=== PATIENT | female | born 1985 | race Caucasian/White ===

== ENCOUNTER 2024-09-27 07:11 | Inpatient (IN) | payer OTHER ==
[~2024-09-27] VITALS: Ht 154.9 cm; Wt 121.1 kg
[2024-09-27] MEDS ORDERED: PredniSONE 20 MG Tab PO ONE (07:25)
[2024-09-27] MEDS ORDERED: Albuterol 2.5 MG/3 ML VIAL INH SCH (07:25)
[2024-09-27] MEDS ORDERED: Ipratropium/Albuterol SulF 2.5-0.5MG/3 ML Amp INH ONE (07:25)
[2024-09-27] MEDS ORDERED: CefTRIAXone Sodium 1,000 MG in NS 50 ML IV ONE (07:45)
[2024-09-27 09:14] LABS: BASOPHILS ABSOLUTE AUTO 0.08 K/mm3 (0.00-0.23); BASOPHILS PERCENT AUTO 1 % (0-2); EOSINOPHILS ABSOLUTE AUTO 0.06 K/mm3 (0.00-0.68); EOSINOPHILS PERCENT AUTO 0 % (0-6); Hematocrit 38.4 % (33.0-51.0); Hemoglobin 12.8 g/dL (11.5-16.0); IMMATURE GRAN ABSOLUTE AUTO 0.04 K/mm3 (0.00-0.10); IMMATURE GRAN PERCENT AUTO 0 % (0-1); LYMPHOCYTES ABSOLUTE AUTO 0.74 K/mm3 (0.84-5.20); LYMPHOCYTES PERCENT AUTO 6 % (21-46); MONOCYTES ABSOLUTE AUTO 0.46 K/mm3 (0.16-1.47); MONOCYTES PERCENT AUTO 3 % (4-13); Mean Corpuscular HGB 31.8 pg (26.0-34.0); Mean Corpuscular HGB Conc 33.3 g/dL (31.5-36.5); Mean Corpuscular Volume 95 fL (80-100); Mean Platelet Volume 8.8 fL (9.1-12.4); NEUTROPHILS ABSOLUTE AUTO 12.15 K/mm3 (1.96-9.15); NEUTROPHILS PERCENT AUTO 90 % (41-73); Platelet Count 310 K/mm3 (150-400); RDW Coefficient Variation 12.3 % (11.7-14.2); RDW Standard Deviation 42.6 fL (35.1-46.3); Red Blood Cell Count 4.03 M/mm3 (3.80-5.20); White Blood Cell Count 13.53 K/mm3 (4.00-11.30)
[2024-09-27] MEDS ORDERED: Azithromycin 500 MG in NS 250 ML IV ONE (09:35)
[2024-09-27] MEDS ORDERED: Lactated Ringer's 1,000 ML IV ONE (09:40)
[2024-09-27 09:42] LABS: Albumin, Blood 3.6 g/dL (3.4-5.0); Albumin/Globulin Ratio 0.9 (0.8-1.8); Bilirubin, Total 0.7 mg/dL (0.1-1.0); Bun/Creatinine Ratio 22.8 (12.0-20.0); Calcium, Blood 9.2 mg/dL (8.5-10.1); Creatinine, Blood 0.61 mg/dL (0.40-1.00); Globulin, Blood 3.9 g/dL (2.2-4.0); Potassium, Blood 3.8 mmol/L (3.5-5.5); Total Protein, Blood 7.5 g/dL (6.4-8.2)
[2024-09-27 09:50] LABS: Influenza A, PCR NEGATIVE (NEGATIVE); Influenza B, PCR NEGATIVE (NEGATIVE); Resp Syncytial Virus, PCR NEGATIVE (NEGATIVE); SARS-Cov-2 (COVID-19) PCR, MMC NEGATIVE (NEGATIVE)
[2024-09-27] MEDS ORDERED: PANT40 PO (10:07)
[2024-09-27] MEDS ORDERED: CELEXA40 M1 PO (10:07)
[2024-09-27] MEDS ORDERED: NEURONTIN400 M1 PO (10:07)
[2024-09-27] MEDS ORDERED: BACLOFEN5 M1 PO (10:08)
[2024-09-27] MEDS ORDERED: ADVAIR HFA 230-28 GM INH (10:08)
[2024-09-27] MEDS ORDERED: FOLI1 PO (10:08)
[2024-09-27] MEDS ORDERED: Atarax10 MG PO (10:08)
[2024-09-27] MEDS ORDERED: ALBU90OI INH (10:09)
[2024-09-27] MEDS ORDERED: VITAMIN D31000 UNI1 PO (10:09)
[2024-09-27] MEDS ORDERED: FLU VACC TS2024-25(6MOS UP)/PF 45 MCG/0.5 ML SYRINGE IM ONE (10:20)
[2024-09-27] MEDS ORDERED: Magnesium Hydroxide Conc 10 ML UDC PO PRN (10:20)
[2024-09-27] MEDS ORDERED: FLU VACC TS2024-25(6MOS UP)/PF 45 MCG/0.5 ML SYRINGE IM SCH (10:20)
[2024-09-27] MEDS ORDERED: Ondansetron HCl 2 MG / ML 2ML Vial IV PRN (10:20)
[2024-09-27] MEDS ORDERED: Ipratropium/Albuterol SulF 2.5-0.5MG/3 ML Amp INH SCH (10:20)
[2024-09-27] MEDS ORDERED: TRAZ100 PO (10:34)
[2024-09-27] MEDS ORDERED: SEROQUEL25 MG PO (10:34)
[2024-09-27] MEDS ORDERED: Nicotine Polacrilex 2 MG Gum PO PRN (10:35)
[2024-09-27] MEDS ORDERED: Mometasone/Formoterol MDI 200/5 mcg 13 GM INH SCH (10:45)
[2024-09-27] MEDS ORDERED: Folic Acid 1 MG TAB PO SCH (11:00)
[2024-09-27] MEDS ORDERED: Cholecalciferol 1000 Unit Tablet (=25MCG) PO SCH (11:00)
[2024-09-27] MEDS ORDERED: Citalopram Hydrobromide 20 MG Tab PO SCH (11:00)
[2024-09-27] MEDS ORDERED: Baclofen 10 MG Tab PO PRN (11:55)
[2024-09-27] MEDS ORDERED: HyDROXyzine HCl 10 MG Tab PO PRN (11:55)
[2024-09-27 12:18] VITALS: BP 129/69
--- NOTE | 2024-09-27 13:16 | NUR ---
PHYSICIAN NOTIFY NOTIFIED DR PARK OF CRITICAL LACTIC OF 3.3, STATED HE WILL ORDER NS INFUSION. VITALS WNL AT THIS TIME, PATIENT ON 3 LITERS NC. A/O X4.
[2024-09-27] MEDS ORDERED: NS 1,000 ML IV SCH (13:20)
[2024-09-27] MEDS ORDERED: Gabapentin 400 MG Cap PO SCH (14:00)
[2024-09-27 15:19] VITALS: BP 158/67
--- NOTE | 2024-09-27 18:18 | NUR ---
SHIFT SUMMARY PATIENT ARRIVED TO FLOOR FROM ER. AMBULATORY, A/O X4. BASELINE TREMORS IN HANDS. ON 3 LITERS OXYGEN NASAL CANNULA, SATING MID 90'S, TACHYCARDIC. DID NOT ATTEMPT TO WEAN THIS SHIFT. CRITICAL LAB RECEIVED, LACTIC 3.3, DOC NOTIFIED, STARTED NS INFUSION. ABLE TO MAKE NEEDS KNOWN. CALL LIGHT IN REACH, CARES ONGOING.
[2024-09-27 19:13] VITALS: BP 168/76
[2024-09-27] MEDS ORDERED: HyDROXyzine HCl 10 MG Tab PO SCH (21:00)
[2024-09-27] MEDS ORDERED: QUEtiapine Fumarate 25 MG Tab PO SCH (21:00)
[2024-09-27] MEDS ORDERED: Baclofen 10 MG Tab PO SCH (21:00)
[2024-09-27] MEDS ORDERED: TraZODone HCl 100 MG Tab PO SCH (21:00)
[2024-09-27] MEDS ORDERED: Lactobacil 2-S.Thermo-Bifido 1 1 Cap PO SCH (21:00)
[2024-09-28 04:26] VITALS: BP 146/84
--- NOTE | 2024-09-28 04:43 | NUR ---
SHIFT SUMMARY PT A&Ox4 AND PLEASANT. ON 3L OF OXYGEN AND SATING ABOVE 95%. RT AT BEDSIDE AT START OF SHIFT. PT SOB WITH ACTIVITY. IND TO BSC. NICOTINE GUM PROVIDED PER EMAR. NS INFUSING @ 150ML/HR. BED IN LOWEST POSITION AND CALL LIGHT IN REACH.
[2024-09-28] MEDS ORDERED: Pantoprazole Sodium 20 MG Tab PO SCH (06:00)
[2024-09-28 06:22] LABS: Hematocrit 32.8 % (33.0-51.0); Hemoglobin 10.8 g/dL (11.5-16.0); Mean Corpuscular HGB 32.2 pg (26.0-34.0); Mean Corpuscular HGB Conc 32.9 g/dL (31.5-36.5); Mean Corpuscular Volume 98 fL (80-100); Mean Platelet Volume 9.3 fL (9.1-12.4); Platelet Count 325 K/mm3 (150-400); RDW Coefficient Variation 12.5 % (11.7-14.2); RDW Standard Deviation 45.1 fL (35.1-46.3); Red Blood Cell Count 3.35 M/mm3 (3.80-5.20); White Blood Cell Count 16.02 K/mm3 (4.00-11.30)
[2024-09-28 06:53] LABS: Bun/Creatinine Ratio 25.9 (12.0-20.0); Calcium, Blood 8.8 mg/dL (8.5-10.1); Creatinine, Blood 0.62 mg/dL (0.40-1.00)
[2024-09-28 07:18] VITALS: BP 140/80
[2024-09-28] MEDS ORDERED: PredniSONE 20 MG Tab PO SCH (09:00)
[2024-09-28] MEDS ORDERED: CefTRIAXone Sodium 1,000 MG in NS 100 ML IV SCH (09:00)
[2024-09-28] MEDS ORDERED: Azithromycin 250 MG Tab PO SCH (09:00)
[2024-09-28] MEDS ORDERED: Nicotine Polacrilex 2 MG Gum PO PRN (09:20)
[2024-09-28] MEDS ORDERED: Baclofen 10 MG Tab PO PRN (09:20)
[2024-09-28] MEDS ORDERED: Nicotine 21 MG PATCH TOP SCH (09:30)
[2024-09-28 16:03] VITALS: BP 158/96
--- NOTE | 2024-09-28 18:02 | NUR ---
SHIFT SUMMARY PATIENT AMBULATORY IN ROOM INDEPENDENTLY. TITRATED TO ROOM AIR THIS SHIFT. UNABLE TO PRODUCE ENOUGH SPUTUM FOR A SAMPLE. PRNS GIVEN FOR PAIN AND ANXIETY, NICOTEINE REPLACEMENTS PROVIDED. TOLERATING ABX WELL. ABLE TO MAKE NEEDS KNOWN. CARES ONGOING. CALL LIGHT IN REACH.
[2024-09-28 20:09] VITALS: BP 173/105
[2024-09-28] MEDS ORDERED: TraZODone HCl 100 MG Tab PO SCH (21:00)
[2024-09-29 02:20] VITALS: BP 181/104
[2024-09-29] MEDS ORDERED: HydrALAZINE HCl 20 MG / ML 1ML Vial IV PRN (05:05)
[2024-09-29 07:41] VITALS: BP 148/86
[2024-09-29] MEDS ORDERED: FentaNYL Citrate 50 MCG/ML 2 ML Injection IV STA (11:01)
[2024-09-29] MEDS ORDERED: Calcium Carbonate 500 MG Tab Chew PO PRN (11:05)
[2024-09-29] MEDS ORDERED: Mag Hydrox/Al Hydrox/Simeth 18 ML,Lidocaine 2% Viscous Soln 9 ML,Atropine/Scopalam/Hyos... PO ONE (11:05)
[2024-09-29] MEDS ORDERED: FentaNYL Citrate 50 MCG/ML 2 ML Injection IV PRN (12:00)
[2024-09-29 16:29] VITALS: BP 162/88
[2024-09-29 16:56] LABS: Hematocrit 34.7 % (33.0-51.0); Hemoglobin 11.7 g/dL (11.5-16.0); Mean Corpuscular HGB 32.3 pg (26.0-34.0); Mean Corpuscular HGB Conc 33.7 g/dL (31.5-36.5); Mean Corpuscular Volume 96 fL (80-100); Mean Platelet Volume 8.9 fL (9.1-12.4); Platelet Count 413 K/mm3 (150-400); RDW Coefficient Variation 12.4 % (11.7-14.2); RDW Standard Deviation 43.5 fL (35.1-46.3); Red Blood Cell Count 3.62 M/mm3 (3.80-5.20); White Blood Cell Count 12.28 K/mm3 (4.00-11.30)
--- NOTE | 2024-09-29 17:52 | NUR ---
SHIFT SUMMARY PT A&OX4 AND ANSWERS QUESTIONS APPROPRIATELY. PT VSS, NO COMPLAINTS OF CP/PRESSURE OR SOB. PT REPORTS ABD PAIN STATING "IT FEELS LIKE MY HERNIA POPPED OR SOMETHYING". PAIN PERSISTS SO PT SEND FOR ABD SCAN. PT RECEIVED SCHEDULED AND PRN MEDICATIONS. PT REPOSITIONED INDEPENDENTLY. PT SPENT MOST OF THE SHIFT IN BED OR WALKING IN ROOM. NO ACUTE EVENTS AT THIS TIME. PT LEFT IN A POSITION OF SAFETY WITH FALL PRECAUTIONS IN PLACE AND CALL LIGHT IN REACH.
--- NOTE | 2024-09-29 18:17 | NUR ---
CALL PLACED TO [facility] TO UPDATE ON PT CARE
[2024-09-29 20:41] VITALS: BP 129/75
[2024-09-30 02:59] VITALS: BP 126/112
--- NOTE | 2024-09-30 05:33 | NUR ---
SHIFT SUMMARY PATIENT SLEPT IN LONG INTERVALS. WITH O2/2L/NC ALL NIGHT. FINE HAND TREMORS IS THE ONLY WITH WITHDRAWAL SYMPTOMS. DID HAVE ABD PAIN THAT REQUIRED TUMS AND FENTANYL. 2ND BP WAS A HIGH DIASTOLIC ONLY, ANOTHER REASON FOR GIVING HER PAIN MED.
[2024-09-30 07:09] VITALS: BP 131/79
[2024-09-30] MEDS ORDERED: Albuterol 2.5 MG/3 ML VIAL INH PRN (08:45)
[2024-09-30] MEDS ORDERED: Ipratropium/Albuterol SulF 2.5-0.5MG/3 ML Amp INH PRN ×2 (10:15→11:35)
[2024-09-30] MEDS ORDERED: Acetaminophen 325 MG TABLET PO PRN (11:25)
[2024-09-30] MEDS ORDERED: HYDROcodone 5-APAP 325 TAB PO PRN (13:20)
--- NOTE | 2024-09-30 16:19 | NUR ---
SUMMARY- PT A/O X4. UP IN CHAIR MOST OF THE DAY. MOD DYSPNEA WITH EXERTION. OCC PERIODS OF EXP WHEEZE, SCATTERED RHONCHI, CLEARS WITH COUGH. STATES MIN PRODUCTION. HAS ROUTINE NEBS AND PRN FOR WHEEZE. PT TOLERATING FOOD AND FLUIDS. PAIN IN BACK CONTROLLED WITH NORCO. PLAN TO BE DC'D WITHIN 24-[address] PARK'S NOTES. SS WORKING ON OBTAINING NEB TX FRO HOME USE.
[2024-09-30 20:21] VITALS: BP 171/74
[2024-09-30 21:45] VITALS: BP 161/90
[2024-09-30 22:32] VITALS: BP 148/77
[2024-10-01 04:12] VITALS: BP 170/78
--- NOTE | 2024-10-01 05:06 | NUR ---
SHIFT SUMMARY 38 YR F ADMITTED ON 09/27/24. FULL CODE. NO ACUTE CHANGES THIS SHIFT. PT HAS BEEN ANXIOUS ABOUT HER SLEEP STUDY THIS SHIFT. SHE WAS CRYING AND WORRIED THAT THE STUDY WOULD NOT WORK BECAUSE SHE WAS NOT ABLE TO FALL ASLEEP RIGHT AWAY. SHE DID EVENTUALLY FALL ASLEEP AND PER RT, PT HAD TAKEN HER O2 OFF AND HER SATS DROPPED TO 86. SATS WERE WNL ONCE O2 WAS PUT BACK ON. SHE IS ON 1 L. PT STATES SHE WANTS TO GO HOME TODAY TO RESUME HER TX FOR ALCOHOLISM.
[2024-10-01 07:42] VITALS: BP 169/87
[2024-10-01] MEDS ORDERED: IPRAT-ALBUT 0.5-3 ML INH (11:54)
[2024-10-01] MEDS ORDERED: DULCOLAX400 MG/5 M PO (11:55)
[2024-10-01] MEDS ORDERED: NICO21TP TOP (11:55)
[2024-10-01] MEDS ORDERED: NICO2 PO (11:55)
[2024-10-01] MEDS ORDERED: PRED20 PO (11:56)
[2024-10-01] MEDS ORDERED: VISBIOME 112.51 EACH PO (11:56)
[2024-10-01] MEDS ORDERED: AMOCLA875 PO (11:56)
[2024-10-01] MEDS ORDERED: FLUTICASONE-SAL12 G2 INH (11:57)
--- NOTE | 2024-10-01 13:35 | NUR ---
PT DISCHARGED 1250 WITH INSTRUCTION. STAFF ESCORT WITH WHEELCHAIR OUT TO PRIVATE CAR PICKUP FROM [employer]. SENT WITH ALL BELONGINGS. ROOM AIR SATS MID 90'S. MOD DYSPNEA WITH ACTIVITY, RECOVERS IN A REASONABLE AMOUNT OF TIME. RICKS TO DELIVER HER NEBULIZER AND OXYGEN FOR NIGHT USE. PT SEEMS IN GOOD SPIRITS AND MOTIVATED TO CONT IN HER ETOH RECOVERY PROCESS.
== END 2024-10-01 12:51 | disposition home or self-care (01) | DRG 871 ==
LOC: ER 07:11 → MEDS 10:16 → ENPENDDIS 10-01 11:29 → MEDS 10-01 12:51
PROVIDERS: Student in an Organized Health Care Education/Training Program; ADMIT Internal Medicine
DX: A41.9 Sepsis, unspecified organism (principal); J18.9 Pneumonia, unspecified organism; J96.01 Acute respiratory failure with hypoxia; J45.901 Unspecified asthma with (acute) exacerbation; R65.20 Severe sepsis without septic shock; F10.20 Alcohol dependence, uncomplicated; F41.9 Anxiety disorder, unspecified; T38.0X5A Adverse effect of glucocorticoids and synthetic analogues, initial encounter; Z99.81 Dependence on supplemental oxygen; Z87.891 Personal history of nicotine dependence; Z88.8 Allergy status to other drugs, medicaments and biological substances
CPT/HCPCS: 0241U; 36415; 71046; 74177; 80048; 80053; 83605; 83690; 84145; 85025; 85027; 87040; 87070; 87205; 93005; 93010; 94640; 94644; 94664; 94760; 94762; 96365; 96375; 99285-25; A9270; J0360; J0456; J0696; J2405; J2470; J3010; J7030; J7050; J7120; J7512; Q9967